=== PATIENT | female | born 1985 | race Caucasian/White ===

== ENCOUNTER 2017-04-05 09:45 | Emergency (ER) | payer OTHER ==
[~2017-04-05] VITALS: Ht 177.8 cm; Wt 65.9 kg
[2017-04-05 09:48] VITALS: BP 104/65
[2017-04-05] MEDS ORDERED: SERT50TA5 PO (10:02)
[2017-04-05] MEDS ORDERED: KETOROLAC 30 MG/1 ML ONE (10:20)
[2017-04-05] MEDS ORDERED: KETOROLAC 30 MG/1 ML IM ONE (10:30)
== END 2017-04-05 11:13 | disposition home or self-care (01) ==
LOC: ED 10:43
DX: S76.212A Strain of adductor muscle, fascia and tendon of left thigh, initial encounter (principal); S76.012A Strain of muscle, fascia and tendon of left hip, initial encounter; X58.XXXA Exposure to other specified factors, initial encounter; Y93.89 Activity, other specified; Y99.8 Other external cause status; Y92.89 Other specified places as the place of occurrence of the external cause
CPT/HCPCS: 73502; 96372; 99284; J1885

== ENCOUNTER → 2018-01-13 | Outpatient (CLI) | payer OTHER ==
[~2018-01-13] MED LIST: SERT50TA5 PO
== END | disposition home or self-care (01) ==
LOC: CFH 06:37
PROVIDERS: ATTEND Internal Medicine Cardiovascular Disease
DX: R07.89 Other chest pain (principal); R00.2 Palpitations
CPT/HCPCS: 93306

== ENCOUNTER 2019-07-02 15:44 | Outpatient (CLI) | payer OTHER ==
[~2019-07-02 15:44] MED LIST changes: +SERT50TA28 PO; -SERT50TA5 PO
== END 2019-07-02 23:59 | disposition home or self-care (01) ==
LOC: CFH 15:44
PROVIDERS: ATTEND Internal Medicine Cardiovascular Disease
DX: I50.812 Chronic right heart failure (principal); R07.89 Other chest pain; R00.2 Palpitations; R06.02 Shortness of breath
CPT/HCPCS: 93306